=== PATIENT | male | born 1955 | race Caucasian/White ===

== ENCOUNTER 2022-05-30 11:11 | Emergency (ER) | payer MEDICARE ==
[~2022-05-30] VITALS: Ht 167.6 cm; Wt 109.1 kg
[2022-05-30 13:14] VITALS: BP 187/105
[2022-05-30] MEDS ORDERED: CIPR1DRO2 RIGHT EAR (13:28)
[2022-05-30] MEDS ORDERED: AMOX-580 PO (13:28)
== END 2022-05-30 13:47 | disposition home or self-care (01) ==
LOC: ER 11:12
DX: H72.91 Unspecified perforation of tympanic membrane, right ear (principal); H66.011 Acute suppurative otitis media with spontaneous rupture of ear drum, right ear; R42 Dizziness and giddiness; E11.9 Type 2 diabetes mellitus without complications; I51.9 Heart disease, unspecified
CPT/HCPCS: 99283